=== PATIENT | female | born 1930 | race Caucasian/White ===

== ENCOUNTER → 2017-03-23 | Outpatient (CLI) | payer MEDICARE, OTHER ==
[~2017-03-23] MED LIST: ACET325 PO; ASCO500 PO; ASPI325 PO; ASPI81EC PO; AZIT250 PO; BACL10 PO; BISA10S PR; BISM300CH PO; Bactrim Ds Tab1 EACH PO; CEPH500 PO; CHOL10002 PO; CIPR500 PO; CLOP75 PO; CODGUAEL PO; CYAN1000 PO; CYCL10 PO; DONE10 PO; FURO40 PO; Ferrous Sulfat325 M2 PO; GLIM4 PO; HYDCHL25 PO; HYDR1TAB94 PO; LAVAP17G PO; LOPE2C PO; LORA.5 PO; LOSARTAN-HCTZ1 EACH PO; Loperamide2 MG PO; MELA3 PO; METF500C PO; METO25ER PO; MONT10T PO; Micro-K10 MEQ PO; Milk Of Ma400 MG/5 M PO; NAPR220 PO; Norco 5-325 Ta1 EACH PO; OSTERA TABLET1 EACH PO; PIOG30 PO; POTA10T PO; POTCHL10ER PO; SACC250C PO; SIMV40 PO; XARELTO15 MG PO; [UNRECOGNIZED DRUG - OTHER] PO
[2017-03-23 14:32] LABS: Source, Urine Clean Catch
[2017-03-23 14:42] LABS: Bilirubin, Urine Neg (Neg); Blood, Urine 1+ (Neg); Glucose Qualitative, Urine 2+ (Neg); Ketones, Urine Neg (Neg); Leukocyte Esterase, Urine 2+ (Neg); Nitrite, Urine Neg (Neg); Protein, Urine Neg (Neg); Specific Gravity, Urine 1.015 (1.003-1.022); Urobilinogen, Urine NORM (Normal)
[2017-03-23 15:22] LABS: Appearance, Urine Clear (Clear); Color, Urine Yellow (P-Yellow)
[2017-03-23 15:23] LABS: Bacteria Mod /hpf; Red Blood Cells, Urine Not Seen /hpf (0-2); Squamous Epithelial Cells Few /hpf (Few)
== END | disposition home or self-care (01) ==
LOC: LAB 14:30 → LAB SHORT 14:30
PROVIDERS: Family Medicine
DX: N39.0 Urinary tract infection, site not specified (principal)
CPT/HCPCS: 81001; 87077; 87086; 87186

== ENCOUNTER → 2017-04-11 | Outpatient (CLI) | payer MEDICARE, OTHER ==
[2017-04-11 18:37] LABS: Source, Urine Clean Catch
[2017-04-11 18:43] LABS: Bilirubin, Urine Neg (Neg); Blood, Urine 2+ (Neg); Glucose Qualitative, Urine Neg (Neg); Ketones, Urine Neg (Neg); Leukocyte Esterase, Urine 2+ (Neg); Nitrite, Urine Neg (Neg); Protein, Urine Neg (Neg); Urobilinogen, Urine NORM (Normal)
[2017-04-11 19:02] LABS: Appearance, Urine Hazy (Clear); Color, Urine Pale Yellow (P-Yellow)
[2017-04-11 19:04] LABS: Amorphous Heavy (0-Heavy); Bacteria Mod /hpf; Red Blood Cells, Urine 0-2 /hpf (0-2); Squamous Epithelial Cells Few /hpf (Few)
== END | disposition home or self-care (01) ==
LOC: LAB 11:30 → LAB SHORT 11:30
PROVIDERS: Family Medicine
DX: N39.0 Urinary tract infection, site not specified (principal)
CPT/HCPCS: 81001; 87077; 87086; 87186

== ENCOUNTER → 2017-05-31 | Outpatient (CLI) | payer MEDICARE, OTHER ==
[2017-05-31 19:13] LABS: Source, Urine Clean Catch
[2017-05-31 19:17] LABS: Appearance, Urine Cloudy (Clear); Bilirubin, Urine Neg (Neg); Blood, Urine 4+ (Neg); Color, Urine Yellow (P-Yellow); Glucose Qualitative, Urine 2+ (Neg); Ketones, Urine Neg (Neg); Leukocyte Esterase, Urine 3+ (Neg); Nitrite, Urine Neg (Neg); Protein, Urine 3+ (Neg); Urobilinogen, Urine NORM (Normal)
[2017-05-31 19:24] LABS: Bacteria Many /hpf; Squamous Epithelial Cells Rare /hpf (Few); White Blood Cells, Urine TNTC /hpf (0-5)
== END ==
LOC: LAB 17:00 → LAB SHORT 17:00
PROVIDERS: Family Medicine
DX: N39.0 Urinary tract infection, site not specified (principal)
CPT/HCPCS: 81001; 87077; 87086; 87186

== ENCOUNTER → 2017-08-12 | Outpatient (CLI) | payer MEDICARE, OTHER ==
[~2017-08-12] MED LIST changes: -ASCO500 PO; -ASPI325 PO; -Bactrim Ds Tab1 EACH PO; -CEPH500 PO; -FURO40 PO; -Ferrous Sulfat325 M2 PO; -LORA.5 PO; -SACC250C PO; -XARELTO15 MG PO
[2017-08-13 14:20] LABS: Source, Urine Clean Catch
[2017-08-13 14:27] LABS: Bilirubin, Urine Neg (Neg); Blood, Urine 1+ (Neg); Glucose Qualitative, Urine Neg (Neg); Ketones, Urine Neg (Neg); Leukocyte Esterase, Urine 2+ (Neg); Nitrite, Urine Neg (Neg); Protein, Urine 1+ (Neg); Urobilinogen, Urine NORM (Normal)
[2017-08-13 14:44] LABS: Appearance, Urine Hazy (Clear); Color, Urine Yellow (P-Yellow)
[2017-08-13 14:45] LABS: White Blood Cells, Urine 25-50 /hpf (0-5)
[2017-08-13 14:46] LABS: Bacteria Many /hpf; Squamous Epithelial Cells Few /hpf (Few)
== END ==
LOC: LAB 11:30 → LAB SHORT 11:30
PROVIDERS: Family Medicine
DX: N39.0 Urinary tract infection, site not specified (principal)
CPT/HCPCS: 81001; 87077; 87086; 87186

== ENCOUNTER → 2017-09-13 | Outpatient (CLI) | payer MEDICARE, OTHER ==
[2017-09-13 14:03] LABS: Source, Urine Clean Catch
[2017-09-13 14:38] LABS: Bilirubin, Urine Neg (Neg); Blood, Urine 3+ (Neg); Glucose Qualitative, Urine Neg (Neg); Ketones, Urine Neg (Neg); Leukocyte Esterase, Urine 3+ (Neg); Nitrite, Urine Neg (Neg); Protein, Urine 2+ (Neg); Urobilinogen, Urine NORM (Normal)
[2017-09-13 15:07] LABS: Appearance, Urine Clear (Clear); Color, Urine Yellow (P-Yellow)
[2017-09-13 15:10] LABS: White Blood Cells, Urine TNTC /hpf (0-5)
[2017-09-13 15:11] LABS: Bacteria Mod /hpf; Squamous Epithelial Cells Few /hpf (Few)
== END ==
LOC: LAB 08:45 → LAB SHORT 08:45
PROVIDERS: Family Medicine
DX: N39.0 Urinary tract infection, site not specified (principal)
CPT/HCPCS: 81001; 87077; 87086; 87186

== ENCOUNTER 2017-11-11 12:29 | Emergency (ER) | payer MEDICARE, OTHER ==
[~2017-11-11] VITALS: Ht 165.1 cm; Wt 63.5 kg
[~2017-11-11 12:29] MED LIST changes: +ASCO500 PO; +CEPH500 PO; +FURO40 PO; +Ferrous Sulfat325 M2 PO; +SACC250C PO; +XARELTO15 MG PO
[2017-11-11 13:01] LABS: BASOPHILS ABSOLUTE AUTO 0.02 K/mm3 (0.00-0.23); BASOPHILS PERCENT AUTO 0 % (0-2); EOSINOPHILS ABSOLUTE AUTO 0.06 K/mm3 (0.00-0.68); EOSINOPHILS PERCENT AUTO 1 % (0-6); IMMATURE GRAN ABSOLUTE AUTO 0.01 K/mm3 (0.00-0.10); IMMATURE GRAN PERCENT AUTO 0 % (0-1); LYMPHOCYTES ABSOLUTE AUTO 2.16 K/mm3 (0.84-5.20); LYMPHOCYTES PERCENT AUTO 35 % (21-46); MONOCYTES ABSOLUTE AUTO 0.51 K/mm3 (0.16-1.47); MONOCYTES PERCENT AUTO 8 % (4-13); Mean Corpuscular HGB 30.1 pg (26.0-34.0); Mean Corpuscular HGB Conc 31.4 g/dL (31.5-36.5); Mean Corpuscular Volume 96 fL (80-100); Mean Platelet Volume 10.2 fL (9.1-12.4); NEUTROPHILS ABSOLUTE AUTO 3.38 K/mm3 (1.96-9.15); NEUTROPHILS PERCENT AUTO 55 % (41-73); Platelet Count 193 K/mm3 (150-400); RDW Coefficient Variation 14.7 % (11.7-14.2); RDW Standard Deviation 51.8 fL (35.1-46.3); Red Blood Cell Count 3.65 M/mm3 (3.80-5.20); White Blood Cell Count 6.14 K/mm3 (4.00-11.30)
[2017-11-11 13:21] LABS: Bun/Creatinine Ratio 26.2 (12.0-20.0); Calcium, Blood 8.7 mg/dL (8.5-10.1); Creatinine, Blood 0.96 mg/dL (0.40-1.00)
[2017-11-11] MEDS ORDERED: LORA.5 PO (13:29)
[2017-11-11 13:35] LABS: Appearance, Urine Cloudy (Clear); Bilirubin, Urine Neg (Neg); Blood, Urine 5+ (Neg); Color, Urine Amber (P-Yellow); Glucose Qualitative, Urine Neg (Neg); Ketones, Urine 2+ (Neg); Leukocyte Esterase, Urine 3+ (Neg); Nitrite, Urine Neg (Neg); Protein, Urine 4+ (Neg); Specific Gravity, Urine 1.015 (1.003-1.022); Urobilinogen, Urine NORM (Normal)
[2017-11-11 13:59] LABS: Bacteria Mod /hpf; Red Blood Cells, Urine TNTC /hpf (0-2); Squamous Epithelial Cells Mod /hpf (Few)
[2017-11-11] MEDS ORDERED: CEPH500 PO (14:08)
== END 2017-11-11 17:10 | disposition home or self-care (01) ==
LOC: ER 12:29
PROVIDERS: Emergency Medicine
DX: N30.90 Cystitis, unspecified without hematuria (principal); G30.9 Alzheimer's disease, unspecified; F02.80 Dementia in other diseases classified elsewhere, unspecified severity, without behavioral disturbance, psychotic disturbance, mood disturbance, and anxiety; E11.9 Type 2 diabetes mellitus without complications; I10 Essential (primary) hypertension; Z88.7 Allergy status to serum and vaccine; Z79.899 Other long term (current) drug therapy; Z79.84 Long term (current) use of oral hypoglycemic drugs; Z79.01 Long term (current) use of anticoagulants; Z87.891 Personal history of nicotine dependence
CPT/HCPCS: 36415; 80048; 81001; 85025; 87077; 87086; 87186; 99284; P9612

== ENCOUNTER → 2018-03-20 | Outpatient (CLI) | payer MEDICARE, OTHER ==
[~2018-03-20] MED LIST changes: +ASPI325 PO; +Bactrim Ds Tab1 EACH PO; +LORA.5 PO
[2018-03-20 19:36] LABS: Appearance, Urine Cloudy (Clear); Bilirubin, Urine Neg (Neg); Blood, Urine 1+ (Neg); Color, Urine Yellow (P-Yellow); Glucose Qualitative, Urine Neg (Neg); Ketones, Urine Neg (Neg); Leukocyte Esterase, Urine 2+ (Neg); Nitrite, Urine Neg (Neg); Protein, Urine 1+ (Neg); Specific Gravity, Urine 1.015 (1.003-1.022); Urobilinogen, Urine NORM (Normal)
[2018-03-20 19:43] LABS: Red Blood Cells, Urine 0-2 /hpf (0-2)
[2018-03-20 19:44] LABS: Bacteria Many /hpf; Squamous Epithelial Cells Few /hpf (Few)
== END | disposition home or self-care (01) ==
LOC: LAB 19:17 → LAB SHORT 19:17
PROVIDERS: Family Medicine
DX: N39.0 Urinary tract infection, site not specified (principal)
CPT/HCPCS: 81001; 87077; 87086; 87186

== ENCOUNTER → 2018-05-14 | Outpatient (CLI) | payer MEDICARE, OTHER ==
[2018-05-14 19:43] LABS: Appearance, Urine Turbid (Clear); Bilirubin, Urine Neg (Neg); Blood, Urine 3+ (Neg); Color, Urine Yellow (P-Yellow); Glucose Qualitative, Urine Neg (Neg); Ketones, Urine Neg (Neg); Leukocyte Esterase, Urine 2+ (Neg); Nitrite, Urine Neg (Neg); Protein, Urine 2+ (Neg); Specific Gravity, Urine 1.015 (1.003-1.022); Urobilinogen, Urine NORM (Normal)
[2018-05-14 19:51] LABS: Red Blood Cells, Urine 0-2 /hpf (0-2); Squamous Epithelial Cells Few /hpf (Few); White Blood Cells, Urine 25-50 /hpf (0-5)
[2018-05-14 19:52] LABS: Amorphous Light (0-Heavy); Bacteria Many /hpf; Calcium Oxalate Crystals Few /hpf
== END | disposition home or self-care (01) ==
LOC: LAB 19:19 → LAB SHORT 19:19
PROVIDERS: Family Medicine
DX: N39.0 Urinary tract infection, site not specified (principal)
CPT/HCPCS: 81001; 87086

== ENCOUNTER → 2018-06-11 | Outpatient (CLI) | payer MEDICARE, OTHER ==
[2018-06-11 19:15] LABS: Source, Urine Clean Catch
[2018-06-11 19:39] LABS: Appearance, Urine Hazy (Clear); Bilirubin, Urine Neg (Neg); Blood, Urine Neg (Neg); Color, Urine Yellow (P-Yellow); Glucose Qualitative, Urine Neg (Neg); Ketones, Urine Neg (Neg); Leukocyte Esterase, Urine 3+ (Neg); Nitrite, Urine Pos (Neg); Protein, Urine Neg (Neg); Specific Gravity, Urine 1.015 (1.003-1.022); Urobilinogen, Urine NORM (Normal)
[2018-06-11 19:55] LABS: Bacteria Many /hpf; Red Blood Cells, Urine 0-2 /hpf (0-2); Squamous Epithelial Cells Mod /hpf (Few)
== END | disposition home or self-care (01) ==
LOC: LAB SHORT 19:13 → LAB 19:13
PROVIDERS: Family Medicine
DX: N39.0 Urinary tract infection, site not specified (principal)
CPT/HCPCS: 81001; 87077; 87086; 87186

== ENCOUNTER → 2018-07-09 | Outpatient (CLI) | payer MEDICARE, OTHER ==
[2018-07-09 19:11] LABS: Source, Urine Clean Catch
[2018-07-09 19:15] LABS: Bilirubin, Urine Neg (Neg); Blood, Urine 4+ (Neg); Glucose Qualitative, Urine 1+ (Neg); Ketones, Urine Neg (Neg); Leukocyte Esterase, Urine 3+ (Neg); Nitrite, Urine Neg (Neg); Protein, Urine 3+ (Neg); Urobilinogen, Urine NORM (Normal)
[2018-07-09 19:24] LABS: Appearance, Urine Hazy (Clear); Color, Urine Yellow (P-Yellow)
[2018-07-09 19:25] LABS: Bacteria Many /hpf; Calcium Oxalate Crystals Few /hpf; Squamous Epithelial Cells Few /hpf (Few); White Blood Cells, Urine TNTC /hpf (0-5)
== END | disposition home or self-care (01) ==
LOC: LAB 19:10 → LAB SHORT 19:10
PROVIDERS: Family Medicine
DX: N39.0 Urinary tract infection, site not specified (principal)
CPT/HCPCS: 81001; 87077; 87086; 87186

== ENCOUNTER → 2018-08-24 | Outpatient (CLI) | payer MEDICARE, OTHER ==
[2018-08-26 14:26] LABS: Source, Urine Clean Catch
[2018-08-26 14:38] LABS: Appearance, Urine Hazy (Clear); Bilirubin, Urine Neg (Neg); Blood, Urine Neg (Neg); Glucose Qualitative, Urine Neg (Neg); Ketones, Urine Neg (Neg); Leukocyte Esterase, Urine 2+ (Neg); Nitrite, Urine Neg (Neg); Protein, Urine 1+ (Neg); Urobilinogen, Urine NORM (Normal)
[2018-08-26 14:52] LABS: Color, Urine Yellow (P-Yellow); Red Blood Cells, Urine Not Seen /hpf (0-2); Squamous Epithelial Cells Many /hpf (Few)
[2018-08-26 14:53] LABS: Bacteria Many /hpf
== END | disposition home or self-care (01) ==
LOC: LAB SHORT 15:00 → LAB 15:00
PROVIDERS: Family Medicine
DX: N39.0 Urinary tract infection, site not specified (principal)
CPT/HCPCS: 81001; 87086

== ENCOUNTER → 2018-10-30 | Outpatient (CLI) | payer MEDICARE, OTHER ==
[2018-10-31 19:27] LABS: Source, Urine Clean Catch
[2018-10-31 19:45] LABS: Bilirubin, Urine Neg (Neg); Blood, Urine 3+ (Neg); Glucose Qualitative, Urine 3+ (Neg); Ketones, Urine Neg (Neg); Leukocyte Esterase, Urine 3+ (Neg); Nitrite, Urine Neg (Neg); Protein, Urine 2+ (Neg); Specific Gravity, Urine 1.015 (1.003-1.022); Urobilinogen, Urine NORM (Normal); pH, Urine 6.5 (5.0-8.0)
[2018-10-31 19:57] LABS: Appearance, Urine Cloudy (Clear); Color, Urine Yellow (P-Yellow)
[2018-10-31 20:00] LABS: Bacteria Many /hpf; Squamous Epithelial Cells Few /hpf (Few)
== END | disposition home or self-care (01) ==
LOC: LAB 19:25 → LAB SHORT 19:25
PROVIDERS: Family Medicine
DX: N39.0 Urinary tract infection, site not specified (principal)
CPT/HCPCS: 81001; 87086

== ENCOUNTER → 2018-11-20 | Outpatient (CLI) | payer MEDICARE, OTHER ==
[2018-11-21 19:45] LABS: Source, Urine Clean Catch
[2018-11-21 20:20] LABS: Bilirubin, Urine Neg (Neg); Blood, Urine 4+ (Neg); Glucose Qualitative, Urine 3+ (Neg); Ketones, Urine 1+ (Neg); Leukocyte Esterase, Urine 3+ (Neg); Nitrite, Urine Neg (Neg); Protein, Urine 2+ (Neg); Specific Gravity, Urine 1.025 (1.003-1.022); Urobilinogen, Urine NORM (Normal)
[2018-11-21 20:33] LABS: Appearance, Urine Hazy (Clear); Color, Urine Yellow (P-Yellow)
[2018-11-21 20:36] LABS: White Blood Cells, Urine TNTC /hpf (0-5)
[2018-11-21 20:37] LABS: Bacteria Many /hpf; Squamous Epithelial Cells Few /hpf (Few)
== END | disposition home or self-care (01) ==
LOC: LAB SHORT 19:44 → LAB 19:44
PROVIDERS: Family Medicine
DX: N39.0 Urinary tract infection, site not specified (principal)
CPT/HCPCS: 81001; 87086

== ENCOUNTER → 2018-12-16 | Outpatient (CLI) | payer MEDICARE, OTHER ==
[2018-12-17 14:40] LABS: Source, Urine Clean Catch
[2018-12-17 17:02] LABS: Bilirubin, Urine Neg (Neg); Blood, Urine 4+ (Neg); Glucose Qualitative, Urine Neg (Neg); Ketones, Urine 2+ (Neg); Leukocyte Esterase, Urine Neg (Neg); Nitrite, Urine Neg (Neg); Protein, Urine 3+ (Neg); Specific Gravity, Urine 1.015 (1.003-1.022); Urobilinogen, Urine NORM (Normal); pH, Urine 6.5 (5.0-8.0)
[2018-12-17 17:48] LABS: Appearance, Urine Cloudy (Clear); Color, Urine Yellow (P-Yellow)
[2018-12-17 17:49] LABS: White Blood Cells, Urine 25-50 /hpf (0-5)
[2018-12-17 17:50] LABS: Bacteria Many /hpf; Squamous Epithelial Cells Rare /hpf (Few)
== END | disposition home or self-care (01) ==
LOC: LAB 18:00 → LAB SHORT 18:00
PROVIDERS: Family Medicine
DX: N39.0 Urinary tract infection, site not specified (principal)
CPT/HCPCS: 81001; 87086

== ENCOUNTER → 2019-04-11 | Outpatient (CLI) | payer MEDICARE, OTHER ==
[2019-04-11 17:39] LABS: Source, Urine Clean Catch
[2019-04-11 19:41] LABS: Appearance, Urine Hazy (Clear); Bilirubin, Urine Neg (Neg); Blood, Urine 4+ (Neg); Color, Urine Yellow (P-Yellow); Glucose Qualitative, Urine 2+ (Neg); Ketones, Urine 1+ (Neg); Leukocyte Esterase, Urine 1+ (Neg); Nitrite, Urine Pos (Neg); Protein, Urine 2+ (Neg); Specific Gravity, Urine 1.015 (1.003-1.022); Urobilinogen, Urine 1+ (Normal)
[2019-04-11 20:03] LABS: Red Blood Cells, Urine 0-2 /hpf (0-2); Squamous Epithelial Cells Few /hpf (Few); White Blood Cells, Urine TNTC /hpf (0-5)
[2019-04-11 20:04] LABS: Bacteria Many /hpf
== END | disposition home or self-care (01) ==
LOC: LAB 17:33 → LAB SHORT 17:33
PROVIDERS: Family Medicine
DX: N39.0 Urinary tract infection, site not specified (principal)
CPT/HCPCS: 81001; 87077; 87086; 87186

== ENCOUNTER → 2019-05-12 | Outpatient (CLI) | payer MEDICARE, OTHER ==
[2019-05-12 19:07] LABS: Source, Urine Clean Catch
[2019-05-12 19:57] LABS: Appearance, Urine Turbid (Clear); Bilirubin, Urine Neg (Neg); Blood, Urine 3+ (Neg); Color, Urine Yellow (P-Yellow); Glucose Qualitative, Urine Neg (Neg); Ketones, Urine Neg (Neg); Leukocyte Esterase, Urine 3+ (Neg); Nitrite, Urine Neg (Neg); Protein, Urine 4+ (Neg); Specific Gravity, Urine 1.015 (1.003-1.022); Urobilinogen, Urine NORM (Normal)
[2019-05-12 20:04] LABS: Bacteria Many /hpf; Red Blood Cells, Urine 0-2 /hpf (0-2); Squamous Epithelial Cells Not Seen /hpf (Few); Triple Phosphate Crystals Mod /hpf; White Blood Cells, Urine TNTC /hpf (0-5)
== END ==
LOC: LAB SHORT 19:04 → LAB 19:04
PROVIDERS: Family Medicine
DX: N39.0 Urinary tract infection, site not specified (principal)
CPT/HCPCS: 81001; 87077; 87086; 87186

== ENCOUNTER → 2019-06-27 | Outpatient (CLI) | payer MEDICARE, OTHER ==
[2019-06-27 18:21] LABS: Source, Urine Catheter
[2019-06-27 19:30] LABS: Bilirubin, Urine Neg (Neg); Blood, Urine 4+ (Neg); Glucose Qualitative, Urine 2+ (Neg); Ketones, Urine Neg (Neg); Leukocyte Esterase, Urine 3+ (Neg); Nitrite, Urine Neg (Neg); Protein, Urine 2+ (Neg); Specific Gravity, Urine 1.015 (1.003-1.022); Urobilinogen, Urine NORM (Normal)
[2019-06-27 19:41] LABS: Appearance, Urine Clear (Clear); Color, Urine Yellow (P-Yellow)
[2019-06-27 19:46] LABS: Bacteria Many /hpf; Squamous Epithelial Cells Few /hpf (Few)
== END | disposition home or self-care (01) ==
LOC: LAB 18:17 → LAB SHORT 18:17
PROVIDERS: Family Medicine
DX: N39.0 Urinary tract infection, site not specified (principal)
CPT/HCPCS: 81001; 87077; 87086; 87186

== ENCOUNTER → 2019-07-21 | Outpatient (CLI) | payer MEDICARE, OTHER ==
[2019-07-22 16:07] LABS: Bilirubin, Urine Neg (Neg); Blood, Urine 4+ (Neg); Glucose Qualitative, Urine 4+ (Neg); Ketones, Urine 2+ (Neg); Leukocyte Esterase, Urine 3+ (Neg); Nitrite, Urine Neg (Neg); Protein, Urine 2+ (Neg); Urobilinogen, Urine NORM (Normal); pH, Urine 6.5 (5.0-8.0)
[2019-07-22 16:32] LABS: Appearance, Urine Cloudy (Clear); Color, Urine Yellow (P-Yellow)
[2019-07-22 16:34] LABS: Bacteria Many /hpf; Red Blood Cells, Urine TNTC /hpf (0-2); Squamous Epithelial Cells Few /hpf (Few); White Blood Cells, Urine TNTC /hpf (0-5)
[2019-07-28 12:45] LABS: Source, Urine Clean Catch
== END | disposition home or self-care (01) ==
LOC: LAB SHORT 19:00 → LAB 19:00
PROVIDERS: Family Medicine
DX: N39.0 Urinary tract infection, site not specified (principal)
CPT/HCPCS: 81001; 87086

== ENCOUNTER → 2019-08-07 | Outpatient (CLI) | payer MEDICARE, OTHER ==
[2019-08-07 13:18] LABS: Bilirubin, Urine Neg (Neg); Blood, Urine 4+ (Neg); Glucose Qualitative, Urine 2+ (Neg); Ketones, Urine 2+ (Neg); Leukocyte Esterase, Urine 3+ (Neg); Nitrite, Urine Pos (Neg); Protein, Urine 3+ (Neg); Urobilinogen, Urine NORM (Normal)
[2019-08-07 13:29] LABS: Appearance, Urine Cloudy (Clear); Color, Urine Yellow (P-Yellow)
[2019-08-07 13:30] LABS: Bacteria Many /hpf; White Blood Cells, Urine TNTC /hpf (0-5)
[2019-08-07 13:31] LABS: Red Blood Cells, Urine 25-50 /hpf (0-2); Squamous Epithelial Cells Few /hpf (Few)
== END | disposition home or self-care (01) ==
LOC: LAB 10:45 → LAB SHORT 10:45
PROVIDERS: Family Medicine
DX: N39.0 Urinary tract infection, site not specified (principal)
CPT/HCPCS: 81001; 87077; 87086; 87186

== ENCOUNTER → 2019-08-27 | Outpatient (CLI) | payer MEDICARE, OTHER ==
[2019-08-27 12:31] LABS: Source, Urine Clean Catch
[2019-08-27 14:24] LABS: Appearance, Urine Turbid (Clear); Color, Urine Yellow (P-Yellow); Leukocyte Esterase, Urine Neg (Neg); Nitrite, Urine Pos (Neg); Protein, Urine 2+ (Neg)
[2019-08-27 14:25] LABS: Bilirubin, Urine Neg (Neg); Blood, Urine 3+ (Neg); Glucose Qualitative, Urine 2+ (Neg); Ketones, Urine 1+ (Neg); Urobilinogen, Urine NORM (Normal)
[2019-08-27 14:39] LABS: White Blood Cells, Urine TNTC /hpf (0-5)
[2019-08-27 14:40] LABS: Amorphous Heavy (0-Heavy); Bacteria Mod /hpf; Squamous Epithelial Cells Few /hpf (Few)
== END | disposition home or self-care (01) ==
LOC: LAB SHORT 12:30 → LAB 12:30
PROVIDERS: Family Medicine
DX: N39.0 Urinary tract infection, site not specified (principal)
CPT/HCPCS: 81001; 87077; 87086; 87186

== ENCOUNTER → 2019-11-24 | Outpatient (CLI) | payer MEDICARE, OTHER ==
[2019-11-25 12:12] LABS: Source, Urine Clean Catch
[2019-11-25 14:07] LABS: Appearance, Urine Hazy (Clear); Bilirubin, Urine Neg (Neg); Blood, Urine 1+ (Neg); Color, Urine Yellow (P-Yellow); Glucose Qualitative, Urine 3+ (Neg); Ketones, Urine Neg (Neg); Leukocyte Esterase, Urine 3+ (Neg); Nitrite, Urine Neg (Neg); Protein, Urine 1+ (Neg); Urobilinogen, Urine NORM (Normal)
[2019-11-25 15:38] LABS: Bacteria Many /hpf; Squamous Epithelial Cells Few /hpf (Few); White Blood Cells, Urine 25-50 /hpf (0-5)
== END ==
LOC: LAB SHORT 12:09 → LAB 12:09 → LAB SHORT 11-25 12:09
PROVIDERS: Family Medicine
DX: N39.0 Urinary tract infection, site not specified (principal)
CPT/HCPCS: 81001; 87077; 87086; 87186

== ENCOUNTER 2020-01-04 19:08 | Inpatient (IN) | payer MEDICARE, OTHER ==
[~2020-01-04] VITALS: Ht 175.3 cm; Wt 59.3 kg
[~2020-01-04 19:08] MED LIST changes: -ASPI325 PO; -BACL10 PO; -Ferrous Sulfat325 M2 PO; -METO25ER PO
[2020-01-04 19:36] LABS: Source, Urine Catheter
[2020-01-04] MEDS ORDERED: CEPH500 (19:37)
[2020-01-04 19:42] LABS: Appearance, Urine Turbid (Clear); Bilirubin, Urine Neg (Neg); Blood, Urine 5+ (Neg); Color, Urine Yellow (P-Yellow); Glucose Qualitative, Urine 3+ (Neg); Ketones, Urine 2+ (Neg); Leukocyte Esterase, Urine 3+ (Neg); Nitrite, Urine Neg (Neg); Protein, Urine 3+ (Neg); Urobilinogen, Urine 2+ (Normal)
[2020-01-04 19:55] LABS: White Blood Cells, Urine TNTC /hpf (0-5)
[2020-01-04 19:56] LABS: Bacteria Many /hpf; Squamous Epithelial Cells Rare /hpf (Few)
[2020-01-04] MEDS ORDERED: ASPI325 PO (20:02)
[2020-01-04] MEDS ORDERED: BACL10 PO (20:02)
[2020-01-04] MEDS ORDERED: Artificial Tear15 ML BOTHEYES (20:03)
[2020-01-04] MEDS ORDERED: FERSU300 PO (20:06)
[2020-01-04] MEDS ORDERED: Prozac20 MG PO (20:06)
[2020-01-04] MEDS ORDERED: METF500 PO (20:07)
[2020-01-04] MEDS ORDERED: Loratadine10 MG PO (20:07)
[2020-01-04] MEDS ORDERED: MONT10T PO (20:08)
[2020-01-04] MEDS ORDERED: METO25 PO (20:08)
[2020-01-04] MEDS ORDERED: LOSARTAN-HCTZ1 EACH PO (20:09)
[2020-01-04] MEDS ORDERED: ACET325 PO (20:10)
[2020-01-04] MEDS ORDERED: ALMACONE-2 LIQ355 ML PO (20:13)
[2020-01-04] MEDS ORDERED: MIRALAX17 GM PO (20:13)
[2020-01-04] MEDS ORDERED: BISA10S PR (20:15)
[2020-01-04] MEDS ORDERED: DICLOFENAC SOD100 G1 TOP (20:16)
[2020-01-04] MEDS ORDERED: IBUP200 PO (20:55)
[2020-01-04] MEDS ORDERED: Norco 5-325 Ta1 EACH PO (20:55)
[2020-01-04] MEDS ORDERED: LOPERAMIDE2 M2 PO (20:57)
[2020-01-04] MEDS ORDERED: DULCOLAX400 MG/5 M PO (20:58)
[2020-01-04] MEDS ORDERED: Q-Tussin100 MG/5 M PO (20:59)
[2020-01-04 21:01] LABS: BASOPHILS ABSOLUTE AUTO 0.02 K/mm3 (0.00-0.23); BASOPHILS PERCENT AUTO 0 % (0-2); EOSINOPHILS PERCENT AUTO 0 % (0-6); Hematocrit 51.1 % (33.0-51.0); Hemoglobin 15.6 g/dL (11.5-16.0); IMMATURE GRAN ABSOLUTE AUTO 0.05 K/mm3 (0.00-0.10); IMMATURE GRAN PERCENT AUTO 0 % (0-1); LYMPHOCYTES ABSOLUTE AUTO 1.07 K/mm3 (0.84-5.20); LYMPHOCYTES PERCENT AUTO 9 % (21-46); MONOCYTES ABSOLUTE AUTO 0.83 K/mm3 (0.16-1.47); MONOCYTES PERCENT AUTO 7 % (4-13); Mean Corpuscular HGB 29.2 pg (26.0-34.0); Mean Corpuscular HGB Conc 30.5 g/dL (31.5-36.5); Mean Corpuscular Volume 96 fL (80-100); Mean Platelet Volume 10.4 fL (9.1-12.4); NEUTROPHILS ABSOLUTE AUTO 10.66 K/mm3 (1.96-9.15); NEUTROPHILS PERCENT AUTO 84 % (41-73); Platelet Count 300 K/mm3 (150-400); RDW Coefficient Variation 13.6 % (11.7-14.2); RDW Standard Deviation 48.3 fL (35.1-46.3); Red Blood Cell Count 5.34 M/mm3 (3.80-5.20); White Blood Cell Count 12.63 K/mm3 (4.00-11.30)
[2020-01-04 21:35] LABS: Albumin, Blood 3.3 g/dL (3.4-5.0); Albumin/Globulin Ratio 0.7 (0.8-1.8); Bilirubin, Total 0.5 mg/dL (0.1-1.0); Bun/Creatinine Ratio 55.7 (12.0-20.0); Calcium, Blood 9.2 mg/dL (8.5-10.1); Creatinine, Blood 2.62 mg/dL (0.40-1.00); Globulin, Blood 4.8 g/dL (2.2-4.0); Potassium, Blood 3.6 mmol/L (3.5-5.5); Total Protein, Blood 8.1 g/dL (6.4-8.2); Troponin I 0.02 ng/mL (0.000-0.040)
[2020-01-05] MEDS ORDERED: Norco 5-325 Ta1 EACH PO (00:02)
[2020-01-05 02:28] LABS: BASOPHILS ABSOLUTE AUTO 0.03 K/mm3 (0.00-0.23); BASOPHILS PERCENT AUTO 0 % (0-2); EOSINOPHILS PERCENT AUTO 0 % (0-6); Hematocrit 44.7 % (33.0-51.0); Hemoglobin 13.5 g/dL (11.5-16.0); IMMATURE GRAN ABSOLUTE AUTO 0.04 K/mm3 (0.00-0.10); IMMATURE GRAN PERCENT AUTO 0 % (0-1); LYMPHOCYTES PERCENT AUTO 10 % (21-46); MONOCYTES PERCENT AUTO 7 % (4-13); Mean Corpuscular HGB 29.5 pg (26.0-34.0); Mean Corpuscular HGB Conc 30.2 g/dL (31.5-36.5); Mean Corpuscular Volume 98 fL (80-100); Mean Platelet Volume 10.5 fL (9.1-12.4); NEUTROPHILS ABSOLUTE AUTO 10.34 K/mm3 (1.96-9.15); NEUTROPHILS PERCENT AUTO 82 % (41-73); Platelet Count 227 K/mm3 (150-400); RDW Coefficient Variation 13.5 % (11.7-14.2); RDW Standard Deviation 48.7 fL (35.1-46.3); Red Blood Cell Count 4.57 M/mm3 (3.80-5.20); White Blood Cell Count 12.61 K/mm3 (4.00-11.30)
[2020-01-05 02:49] LABS: Albumin, Blood 2.8 g/dL (3.4-5.0); Albumin/Globulin Ratio 0.7 (0.8-1.8); Bilirubin, Total 0.4 mg/dL (0.1-1.0); Bun/Creatinine Ratio 62.3 (12.0-20.0); Calcium, Blood 8.1 mg/dL (8.5-10.1); Creatinine, Blood 2.12 mg/dL (0.40-1.00); Globulin, Blood 3.8 g/dL (2.2-4.0); Potassium, Blood 3.8 mmol/L (3.5-5.5); Total Protein, Blood 6.6 g/dL (6.4-8.2)
--- NOTE | 2020-01-05 05:07 | NUR ---
shift summary pt rested through shift after being admitted very confused - advanced dementia/slow to respond tele nsr c 7sec vtach per tele room air >90% incontinent bm's - attends changed as needed x1 sinha - 700ml - cloudy/odorous urine no c/o pain vss cbg 444 call light within reach, bed in lowest position, bed alarm on. will continue to monitor.
--- NOTE | 2020-01-05 07:45 | NUR ---
ASSUMING CARE OF PT, RECEIVED REPORT FROM PHYLLIS SHIN. PT MEDICATED PER ORDERS FOR ELEVATED BLOOD GLUCOSE LEVELS, REPOSITIONED IN BED. MILK SAMPLER AT BEDSIDE TO ASSIST PT WITH BREAKFAST.
--- NOTE | 2020-01-05 11:40 | NUR ---
RECEIVED PHONE CALL FROM PHYLLIS LOREDO WHO WORKS AT [employer]. FACUNDO STATES PT HAS BEEN TAKING KEFLEX FOR UTI X4 DAYS, HAS BECOME LETHARGIC OVER THE PAST COUPLE DAYS ALONG WITH HIGH BLOOD GLUCOSE LEVELS. FACUNDO STATES PT NORMALLY WALKS INDEPENDENTLY, DOES NOT TALK MUCH MORE THAN TYPICAL PHRASES SUCH "NO" OR "NOT NOW" BUT DOES SHAKE/NOD HER HEAD TO ANSWER QUESTIONS. FACUNDO STATES PT CAN SWALLOW PILLS WHOLE AND IS SOMETIMES RESISTANT TO ADL'S. MULTIPLE ATTEMPTS MADE TO GIVE PT HER MORNING MEDICATION. PT CONTINUES TO REFUSE.
--- NOTE | 2020-01-05 11:50 | NUR ---
Spiritual care visit conducted. Patient is minimally responsive. Patient barely lifts her head when I call her name and does not open her eyes. I ask several questions and no response until I ask if I could provide prayer for her. At that time she nods her head a little bit. I begin to pray and I open my eyes to see if there is any change and she is starring at my mouth. As I finish prayer she goes back to closed eyes and no response. I let her rest. I will continue to remain available to patient and family.
--- NOTE | 2020-01-05 12:48 | NUR ---
RECEIEVED REPORT FROM JOSE VAZQUEZ RN @ 0073. PATIENT WILL BE TRANSFERED TO ROOM 344.
--- NOTE | 2020-01-05 13:09 | NUR ---
PATIENT ARRIVED TO ROOM 344 AT 1305. PATIENT IS SITUATED IN ROOM.
--- NOTE | 2020-01-05 15:07 | NUR ---
Clinical Visit: Pt resting in bed quietly. She appears to be asleep; pt allowed to be restful at this time. Call placed to pt's health care customer relations representative, Nahed. Message left for her to return call. Call placed to [facility]. Spoke to lead nurse, Montse. Montse states that this pt is usually ambulatory, transfers with assistance, has a good appetite. Montse reports that prior to this admission, pt has been doing very well at the facility. Montse has spoken to the pt's health care customer relations representative about end of life matters in the past: she does not believe pt to be appropriate for hospice at this time, however, when the pt begins to become sicker more often or loses some of her remaining function, the decision maker will accept hospice services. Spoke with bedside nurse, Leida. No other concerns.
--- NOTE | 2020-01-05 15:36 | NUR ---
PATIENT HAS BEEN QUIETLY RESTING/ASLEEP SINCE TRANSFERING TO ROOM 346. TEJEDA CATH IS DRAINING TO GRAVITY. BP IS EVEVATED IN THE 150's SYSTOLLICALLY BUT OTHERWISE VITALS ARE STABLE. PATIENT RESPONDS BEST TO CARE/ADL'S WHEN APPROACHED CALMLY AND WHEN TALKED THROUGH THE ROUTINE. FOAM DRESSING TO HER [employer] CD[employer]. PATIENT CONTINUES TO REST IN ROOM AT THIS TIME. CONTINUES ON IV ABX WITHOUT S/SX OF ADVERSE REACTIONS NOTED OR REPORTED. WILL CONTINUE TO MONITOR AND PROVIDE CARE NEEDED.
--- NOTE | 2020-01-06 04:55 | NUR ---
SHIFT SUMMARY OPENS EYES TO VERBAL STIMULI. MOSTLY NONVERBAL-OCCASIONALLY WILL STATE 1 WORD SUCH "NO" OR "OW". NODS HEAD YES OR NO TO QUESTIONS. CAN FOLLOW SIMPLE DIRECTIONS- NURSERY LABORER HANDS, WIGGLE TOES, STICK OUT TONGUE. VSS. SLEPT WELL T/O NIGHT. WAS ABLE TO TALK PT INTO TAKING MOST MEDS c APPLESAUCE, SHE DID REFUSE A COUPLE MEDS. CBG @HS WAS 130. NIKHIL IS PATENT & DRAINING. PT HAD 2 SOFT BM THIS SHIFT. PT NEEDS CONSTANT VERBALIZATION OF TASKS/CARE THAT IS BEING PERFORMED, SHE IS FEARFUL & TRIED TO HIT/BITE WHEN FORGETS WHAT/WHY CARE IS BEING DONE, IS EASILY REASSURED. PT HAS YELLOW/WHITE LESIONS ON TONGUE, ATTEMPTED TO PERFORM ORAL CARE-PT REFUSED. CALL LIGHT & BED ALARM IN PLACE FOR SAFETY. TM.
[2020-01-06 06:48] LABS: BASOPHILS ABSOLUTE AUTO 0.02 K/mm3 (0.00-0.23); BASOPHILS PERCENT AUTO 0 % (0-2); EOSINOPHILS PERCENT AUTO 0 % (0-6); Hematocrit 43.8 % (33.0-51.0); Hemoglobin 13.7 g/dL (11.5-16.0); IMMATURE GRAN ABSOLUTE AUTO 0.04 K/mm3 (0.00-0.10); IMMATURE GRAN PERCENT AUTO 0 % (0-1); LYMPHOCYTES ABSOLUTE AUTO 1.81 K/mm3 (0.84-5.20); LYMPHOCYTES PERCENT AUTO 14 % (21-46); MONOCYTES PERCENT AUTO 5 % (4-13); Mean Corpuscular HGB 29.9 pg (26.0-34.0); Mean Corpuscular HGB Conc 31.3 g/dL (31.5-36.5); Mean Corpuscular Volume 96 fL (80-100); Mean Platelet Volume 10.5 fL (9.1-12.4); NEUTROPHILS ABSOLUTE AUTO 10.47 K/mm3 (1.96-9.15); NEUTROPHILS PERCENT AUTO 80 % (41-73); Platelet Count 187 K/mm3 (150-400); RDW Coefficient Variation 13.7 % (11.7-14.2); RDW Standard Deviation 47.9 fL (35.1-46.3); Red Blood Cell Count 4.58 M/mm3 (3.80-5.20); White Blood Cell Count 13.04 K/mm3 (4.00-11.30)
[2020-01-06 07:38] LABS: Albumin, Blood 2.8 g/dL (3.4-5.0); Albumin/Globulin Ratio 0.7 (0.8-1.8); Bilirubin, Total 0.5 mg/dL (0.1-1.0); Bun/Creatinine Ratio 77.1 (12.0-20.0); Calcium, Blood 8.6 mg/dL (8.5-10.1); Creatinine, Blood 1.05 mg/dL (0.40-1.00); Potassium, Blood 2.6 mmol/L (3.5-5.5); Total Protein, Blood 6.8 g/dL (6.4-8.2)
--- NOTE | 2020-01-06 10:50 | NUR ---
PT REFUSED ALL MEDICATIONS THIS MORNING. SHE REFUSED TO EAT BREAKFAST. IV FLUIDS RUNNING PER ORDER. SHE REMAINS CONFUSED AND NEEDS CONSTANT REMINDERS AND REINFORCEMENT DURING CARES. PT HAD TWO BMS OVER NIGHT.
--- NOTE | 2020-01-06 18:20 | NUR ---
PT HAD CRITICAL NA+ LEVEL. MEDS ADJUSTED . PT IS MOSTLY NON VERBAL WITH THE OCCASIONAL NOD OR YES/NO . POWERGLIDE PLACED THIS SHIFT. PT REFUSED ORAL MEDICATIONS. IV MEDS ADMINISTERED. DRESSINGS CHANGED THIS SHIFT. NO ACUTE CHANGES.
--- NOTE | 2020-01-07 05:31 | NUR ---
SHIFT SUMMARY NO ACUTE CHANGES THIS SHIFT. AOX1-SELF ONLY. PT MORE VERBAL THIS AM THEN PREVIOUS NIGHT, STATES "HELLO" & "VERY GOOD JOB" BEFORE & AFTER BEING CHANGED. MOSTLY NONVERBAL c NODDING YES/NO TO QUESTIONS. VSS. TEJEDA PATENT & DRAINING. PT REFUSED SOME MEDS, OTHERWISE ABLE TO TAKE MOST PO MEDS CRUSHED IN APPLESAUCE. HAD 1 LRG SOFT BM THIS SHIFT. CALL LIGHT IN REACH & BED ALARM IN PLACE.
[2020-01-07 06:07] LABS: BASOPHILS ABSOLUTE AUTO 0.02 K/mm3 (0.00-0.23); BASOPHILS PERCENT AUTO 0 % (0-2); EOSINOPHILS ABSOLUTE AUTO 0.04 K/mm3 (0.00-0.68); EOSINOPHILS PERCENT AUTO 0 % (0-6); Hematocrit 42.8 % (33.0-51.0); Hemoglobin 12.9 g/dL (11.5-16.0); IMMATURE GRAN ABSOLUTE AUTO 0.07 K/mm3 (0.00-0.10); IMMATURE GRAN PERCENT AUTO 1 % (0-1); LYMPHOCYTES PERCENT AUTO 16 % (21-46); MONOCYTES ABSOLUTE AUTO 0.71 K/mm3 (0.16-1.47); MONOCYTES PERCENT AUTO 5 % (4-13); Mean Corpuscular HGB 29.5 pg (26.0-34.0); Mean Corpuscular HGB Conc 30.1 g/dL (31.5-36.5); Mean Corpuscular Volume 98 fL (80-100); Mean Platelet Volume 10.7 fL (9.1-12.4); NEUTROPHILS ABSOLUTE AUTO 10.73 K/mm3 (1.96-9.15); NEUTROPHILS PERCENT AUTO 78 % (41-73); Platelet Count 165 K/mm3 (150-400); RDW Coefficient Variation 13.6 % (11.7-14.2); RDW Standard Deviation 49.9 fL (35.1-46.3); Red Blood Cell Count 4.37 M/mm3 (3.80-5.20); White Blood Cell Count 13.77 K/mm3 (4.00-11.30)
[2020-01-07 06:29] LABS: Blood Urea Nitrogen 51 mg/dL (8-24); Bun/Creatinine Ratio 59.3 (12.0-20.0); CO2, Blood 26 mmol/L (21-32); Calcium, Blood 8.3 mg/dL (8.5-10.1); Chloride, Blood 131 mmol/L (98-108); Creatinine, Blood 0.86 mg/dL (0.40-1.00); Glomerular Filtration Rate >60 (60-); Glucose, Blood 136 mg/dL (70-99); Potassium, Blood 2.7 mmol/L (3.5-5.5)
[2020-01-07 06:33] LABS: Anion Gap 6 mmol/L (6-16); Sodium, Blood 163 mmol/L (136-145)
--- NOTE | 2020-01-07 18:07 | NUR ---
PATIENT ALERT AND ORIENTED X1. BECOMING CONVERSATIONAL, SPEAKING IN FULL SENTENSES AND ASKING QUESTIONS. FLUIDS RAN ORDERED AND PT COMPLIANT WITH CARE. LOVENOX AND EYE DROPS REFUSED AT BEGINNING OF SHIFT. NO COMPLAINTS OF PAIN, SOB OR N/V. STAFF WILL CONT. TO MONITOR.
--- NOTE | 2020-01-08 04:14 | NUR ---
SHIFT SUMMARY ASSUMED CARE OF PT AT 100. PT IS A/O X2. PT TRYS TO REFUSE MEDICATIONS BUT CAN BE COAXED IN TAKING THEM IF THEY ARE CRUSHED IN APPLESAUCE. PT DOESNT LIKE TO HAVE HER BREIF CHANGED AND WILL SCREAM AND PLACE HER HANDS ON HER PERIAREA. PT HAD VERY LARGE LOOSE BM THIS SHIFT. PT HAS CATHETER DRAINING CLEAR YELLOW URINE. PT TALKED TO HERSELF ON AT TIMES DURING THE NIGHT IN BETWEEN SLEEPING. NO ACUTE EVENTS DURING THE NIGHT. PT SLEPT PARTS OF THE NIGHT. CALL LIGHT IN REACH, BED IN LOWEST POSTION, BED ALARM ON.
[2020-01-08 05:33] LABS: Anion Gap 7 mmol/L (6-16); Blood Urea Nitrogen 27 mg/dL (8-24); Bun/Creatinine Ratio 36.2 (12.0-20.0); CO2, Blood 25 mmol/L (21-32); Calcium, Blood 8.1 mg/dL (8.5-10.1); Chloride, Blood 122 mmol/L (98-108); Creatinine, Blood 0.75 mg/dL (0.40-1.00); Free Thyroxine 1.02 ng/dL (0.70-1.60); Glomerular Filtration Rate >60 (60-); Glucose, Blood 302 mg/dL (70-99); Magnesium, Blood 2.2 mg/dL (1.6-2.4); Sodium, Blood 154 mmol/L (136-145); Thyroid Stimulating Hormone 0.623 uIU/mL (0.360-4.800)
[2020-01-08 05:34] LABS: BASOPHILS ABSOLUTE AUTO 0.01 K/mm3 (0.00-0.23); BASOPHILS PERCENT AUTO 0 % (0-2); EOSINOPHILS ABSOLUTE AUTO 0.13 K/mm3 (0.00-0.68); EOSINOPHILS PERCENT AUTO 1 % (0-6); Hematocrit 35.8 % (33.0-51.0); Hemoglobin 10.8 g/dL (11.5-16.0); IMMATURE GRAN ABSOLUTE AUTO 0.04 K/mm3 (0.00-0.10); IMMATURE GRAN PERCENT AUTO 0 % (0-1); LYMPHOCYTES ABSOLUTE AUTO 1.93 K/mm3 (0.84-5.20); LYMPHOCYTES PERCENT AUTO 21 % (21-46); MONOCYTES ABSOLUTE AUTO 0.44 K/mm3 (0.16-1.47); MONOCYTES PERCENT AUTO 5 % (4-13); Mean Corpuscular HGB 29.2 pg (26.0-34.0); Mean Corpuscular HGB Conc 30.2 g/dL (31.5-36.5); Mean Corpuscular Volume 97 fL (80-100); NEUTROPHILS ABSOLUTE AUTO 6.74 K/mm3 (1.96-9.15); NEUTROPHILS PERCENT AUTO 73 % (41-73); Platelet Count 128 K/mm3 (150-400); RDW Coefficient Variation 13.5 % (11.7-14.2); RDW Standard Deviation 48.4 fL (35.1-46.3); White Blood Cell Count 9.29 K/mm3 (4.00-11.30)
--- NOTE | 2020-01-08 18:25 | NUR ---
SHIFT SUMMARY- PT IS ALERT AND CONFUSED. SHE IS EATING AND DRINKING WELL. REMOVED HER TEJEDA, SHE IS VOIDING ON HER OWN. SHE IS RECIEVING IV FLUIDS. SOME IMPORVMENT IN HER SODIUM AND POTASSIUM LEVELS. SHE IS RECIEVING PO POTASSIUM. HER BLOOD SUGAR LEVELS HAVE BEEN ELEVATED. SPOKE WITH FACUNDO FROM [facility]. SHE REQUESTED AN A1C BE DRAWN WITH NEXT LABS, SPOKE WITH DR. CUELLAR ABOUT THIS. SHE HAS BEEN COOPERATIVE AND PLESANT TODAY. SHE RECIEVED A BED BATH.
--- NOTE | 2020-01-09 04:01 | NUR ---
SHIFT SUMMARY ASSUMED CARE OF PT AT 1900. PT IS ALERT BUT NOT ORIENTED AT ALL. HEART SOUNDS REGULAR, GOEVANI SOUNDS DIMINISHED. PT ONLY SLEPT ABOUT 1 HOUR TONIGHT. T AHS BEEN IN BED MUMBLING TO HERSELF. PT WILL NOT ANSWER QUESTIONS APPROPIATELY WHEN ASKED. PT STILL DOESNT LIKE TO BE CHANGES. PT TOOK MEDICATION CRUSHED IN APPLESAUCE. PT ATTEMPTED TO GET OUT OF BED ONCE THIS SHIFT. THERE IS TWO DISCOLOED SPOTS ON PT BOTTOM, MELIPEX APPLIED. PT WAS INCONTINENT OF URINE T/O THE NIGHT. STOOLS STILL LOOSE. CALL LIGHT IN REACH, BED IN LOWEST POSITION, WILL CONTINUE TO MONITOR.
[2020-01-09 05:44] LABS: Anion Gap 4 mmol/L (6-16); Blood Urea Nitrogen 12 mg/dL (8-24); Bun/Creatinine Ratio 20.5 (12.0-20.0); CO2, Blood 27 mmol/L (21-32); Calcium, Blood 7.7 mg/dL (8.5-10.1); Chloride, Blood 118 mmol/L (98-108); Creatinine, Blood 0.58 mg/dL (0.40-1.00); Glomerular Filtration Rate >60 (60-); Glucose, Blood 149 mg/dL (70-99); Potassium, Blood 3.2 mmol/L (3.5-5.5); Sodium, Blood 149 mmol/L (136-145)
[2020-01-09] MEDS ORDERED: SENN187 PO (09:14)
[2020-01-09] MEDS ORDERED: ARTIFICIAL TEAR15 M2 BOTHEYES (09:15)
[2020-01-09] MEDS ORDERED: BASAGLAR K100 UNIT/1 SC (09:16)
[2020-01-09] MEDS ORDERED: HUMALOG100 UNIT/1 SC (09:17)
[2020-01-09] MEDS ORDERED: POTCHL20ER PO (09:18)
[2020-01-09] MEDS ORDERED: VISIBIOME PO (09:20)
--- NOTE | 2020-01-09 11:03 | NUR ---
SPOKE WITH [facility] THIS MORNING AND GOT A COVID ORDER FOR THE PATIENT TO RETURN HOME. PATIENT'S IV IS REMOVED, SPOKE ABOUT LABS, BLOOD PRESSURES, AND MEDICATIONS. SPOKE WITH THE NURSE AND SENT OVER HOME MEDICATIONS FOR THE PATIENT WELL SENDING THE MEDICATIONS TO PHARMACY OF CHOICE PER RN REQUEST. SPOKE WITH RN AGAIN AT 1108 TO UPDATE ON COVID TEST, LET RN KNOW ABOUT TRANSPORT TIME AND LEFT MEDICAL FLOOR NUMBER FOR ANY CONCERNS. RN FROM [facility] (FACUNDO) DID ASK IF AN A1C WAS RUN BUT DID NOT HAVE AN ANSWER FOR HER AT THIS TIME.
--- NOTE | 2020-01-09 14:03 | NUR ---
DISCHARGE SUMMARY PATIENT OUT WITH [facility] WHEELCHA[facility] VAN. SHE IS ON THE WAY TO [facility] ALL DISCHARGE PAPERS HAVE BEEN SENT TO [facility] VIA FAX AND HARD COPY SENT WITH [facility]. PATIENT IS PLEASANT. IV REMOVED. NO ACUTE CONCNERNS AT TIME OF DISCHARGE.
== END 2020-01-09 14:01 | disposition home or self-care (01) | DRG 871 ==
LOC: ER 19:08 → MEDS 22:06 → PCU 22:06 → MEDS 01-05 13:00 → ENPENDDIS 01-09 09:08 → MEDS 01-09 14:01
PROVIDERS: Emergency Medicine; Internal Medicine; ADMIT Internal Medicine
DX: A41.9 Sepsis, unspecified organism (principal); G92 Toxic encephalopathy; N17.9 Acute kidney failure, unspecified; N39.0 Urinary tract infection, site not specified; E87.0 Hyperosmolality and hypernatremia; Z66 Do not resuscitate; E11.65 Type 2 diabetes mellitus with hyperglycemia; Z20.828 Contact with and (suspected) exposure to other viral communicable diseases; R65.20 Severe sepsis without septic shock; E86.0 Dehydration; G89.29 Other chronic pain; G30.9 Alzheimer's disease, unspecified; F02.80 Dementia in other diseases classified elsewhere, unspecified severity, without behavioral disturbance, psychotic disturbance, mood disturbance, and anxiety; M81.0 Age-related osteoporosis without current pathological fracture; Z79.82 Long term (current) use of aspirin; E78.5 Hyperlipidemia, unspecified; I10 Essential (primary) hypertension; E87.6 Hypokalemia; D63.8 Anemia in other chronic diseases classified elsewhere; Z79.84 Long term (current) use of oral hypoglycemic drugs
CPT/HCPCS: 36415; 51702; 70450; 71045; 74176; 80048; 80053; 81001; 82010; 82330; 82947; 83605; 83690; 83735; 84439; 84443; 84484; 85025; 87040; 87077; 87086; 87186; 93005; 93010; 96361; 96365-59; 99285-25; A9270; A9270-GY; C9113; J0456; J0696; J1650; J3480; J7030; J7042; J7050; P9612; U0003; U0004

== ENCOUNTER → 2020-10-07 | Outpatient (CLI) | payer MEDICARE, OTHER ==
[~2020-10-07] MED LIST changes: +ALMACONE-2 LIQ355 ML PO; +ARTIFICIAL TEAR15 M2 BOTHEYES; +ASPI325 PO; +Artificial Tear15 ML BOTHEYES; +BACL10 PO; +BASAGLAR K100 UNIT/1 SC; +CEPH500; +DICLOFENAC SOD100 G1 TOP; +DULCOLAX400 MG/5 M PO; +FERSU300 PO; +HUMALOG100 UNIT/1 SC; +IBUP200 PO; +LOPERAMIDE2 M2 PO; +Loratadine10 MG PO; +METF500 PO; +METO25 PO; +MIRALAX17 GM PO; +POTCHL20ER PO; +Prozac20 MG PO; +Q-Tussin100 MG/5 M PO; +SENN187 PO; +VISIBIOME PO
[2020-10-07 19:08] LABS: BASOPHILS ABSOLUTE AUTO 0.03 K/mm3 (0.00-0.23); BASOPHILS PERCENT AUTO 1 % (0-2); EOSINOPHILS PERCENT AUTO 2 % (0-6); Hematocrit 41.8 % (33.0-51.0); Hemoglobin 13.4 g/dL (11.5-16.0); IMMATURE GRAN ABSOLUTE AUTO 0.01 K/mm3 (0.00-0.10); IMMATURE GRAN PERCENT AUTO 0 % (0-1); LYMPHOCYTES ABSOLUTE AUTO 1.85 K/mm3 (0.84-5.20); LYMPHOCYTES PERCENT AUTO 38 % (21-46); MONOCYTES ABSOLUTE AUTO 0.38 K/mm3 (0.16-1.47); MONOCYTES PERCENT AUTO 8 % (4-13); Mean Corpuscular HGB 28.6 pg (26.0-34.0); Mean Corpuscular HGB Conc 32.1 g/dL (31.5-36.5); Mean Corpuscular Volume 89 fL (80-100); Mean Platelet Volume 11.1 fL (9.1-12.4); NEUTROPHILS ABSOLUTE AUTO 2.54 K/mm3 (1.96-9.15); NEUTROPHILS PERCENT AUTO 52 % (41-73); Platelet Count 194 K/mm3 (150-400); RDW Coefficient Variation 13.2 % (11.7-14.2); RDW Standard Deviation 42.9 fL (35.1-46.3); Red Blood Cell Count 4.69 M/mm3 (3.80-5.20); White Blood Cell Count 4.91 K/mm3 (4.00-11.30)
[2020-10-07 19:41] LABS: Alanine Aminotransfer (ALT/SGP 45 U/L (12-78); Albumin, Blood 3.1 g/dL (3.4-5.0); Albumin/Globulin Ratio 0.8 (0.8-1.8); Alk Phos 91 U/L (50-136); Anion Gap 7 mmol/L (6-16); Aspartate Aminotrans (AST/SGOT 25 U/L (12-37); Bilirubin, Total 0.4 mg/dL (0.1-1.0); Blood Urea Nitrogen 21 mg/dL (8-24); Bun/Creatinine Ratio 28.1 (12.0-20.0); CO2, Blood 27 mmol/L (21-32); Calcium, Blood 9.1 mg/dL (8.5-10.1); Chloride, Blood 107 mmol/L (98-108); Creatinine, Blood 0.75 mg/dL (0.40-1.00); Globulin, Blood 3.8 g/dL (2.2-4.0); Glomerular Filtration Rate >60 (60-); Glucose, Blood 213 mg/dL (70-99); Potassium, Blood 4.2 mmol/L (3.5-5.5); Sodium, Blood 141 mmol/L (136-145); Total Protein, Blood 6.9 g/dL (6.4-8.2)
== END | disposition home or self-care (01) ==
LOC: LAB 12:35 → LAB SHORT 12:35
PROVIDERS: Family Medicine
DX: E11.9 Type 2 diabetes mellitus without complications (principal); I10 Essential (primary) hypertension; G30.9 Alzheimer's disease, unspecified
CPT/HCPCS: 80053; 83036; 85025

== ENCOUNTER 2020-11-30 09:23 | Inpatient (IN) | payer MEDICARE, OTHER ==
[~2020-11-30] VITALS: Ht 162.6 cm; Wt 57.0 kg
[2020-11-30 10:08] LABS: Hematocrit 48.4 % (33.0-51.0); Hemoglobin 15.1 g/dL (11.5-16.0); Mean Corpuscular HGB 28.2 pg (26.0-34.0); Mean Corpuscular HGB Conc 31.2 g/dL (31.5-36.5); Mean Corpuscular Volume 90 fL (80-100); Mean Platelet Volume 11.8 fL (9.1-12.4); Platelet Count 160 K/mm3 (150-400); RDW Coefficient Variation 15.3 % (11.7-14.2); RDW Standard Deviation 50.6 fL (35.1-46.3); Red Blood Cell Count 5.36 M/mm3 (3.80-5.20); White Blood Cell Count 10.28 K/mm3 (4.00-11.30)
[2020-11-30 10:12] LABS: Source, Urine Catheter
[2020-11-30] MEDS ORDERED: Prozac20 MG PO ×2 (10:13→15:07)
[2020-11-30 10:18] LABS: Appearance, Urine Hazy (Clear); Bilirubin, Urine Neg (Neg); Blood, Urine 2+ (Neg); Color, Urine Amber (P-Yellow); Glucose Qualitative, Urine 3+ (Neg); Ketones, Urine Neg (Neg); Leukocyte Esterase, Urine Neg (Neg); Nitrite, Urine Pos (Neg); Protein, Urine 2+ (Neg); Urobilinogen, Urine NORM (Normal)
[2020-11-30 10:32] LABS: Alanine Aminotransfer (ALT/SGP 235 U/L (12-78); Albumin, Blood 2.7 g/dL (3.4-5.0); Albumin/Globulin Ratio 0.5 (0.8-1.8); Alk Phos 205 U/L (50-136); Anion Gap 8 mmol/L (6-16); Aspartate Aminotrans (AST/SGOT 94 U/L (12-37); Bilirubin, Total 1.1 mg/dL (0.1-1.0); Blood Urea Nitrogen 88 mg/dL (8-24); Bun/Creatinine Ratio 43.6 (12.0-20.0); CO2, Blood 28 mmol/L (21-32); Calcium, Blood 9.9 mg/dL (8.5-10.1); Chloride, Blood 123 mmol/L (98-108); Creatinine, Blood 2.02 mg/dL (0.40-1.00); Globulin, Blood 5.1 g/dL (2.2-4.0); Glomerular Filtration Rate 23 (60-); Glucose, Blood 349 mg/dL (70-99); Potassium, Blood 3.6 mmol/L (3.5-5.5); Sodium, Blood 159 mmol/L (136-145); Total Protein, Blood 7.8 g/dL (6.4-8.2); Troponin I <0.015 ng/mL (0.000-0.040)
[2020-11-30 11:05] LABS: Amorphous Mod (0-Heavy); Bacteria Few /hpf; Squamous Epithelial Cells Mod /hpf (Few)
[2020-11-30 11:25] LABS: BAND PERCENT MAN 17 % (0-8); BASOPHILS PERCENT MAN 0 % (0-2); EOSINOPHILS PERCENT MAN 0 % (0-6); LYMPHOCYTES ABSOLUTE MAN 0.61 K/mm3 (0.84-5.20); LYMPHOCYTES PERCENT MAN 6 % (21-46); MONOCYTES ABSOLUTE MAN 0.61 K/mm3 (0.16-1.47); MONOCYTES PERCENT MAN 6 % (4-13); NEUTROPHILS ABSOLUTE MAN 9.04 K/mm3 (1.96-9.15); SEG NEUTROPHILS PERCENT MAN 71 % (41-73); TOTAL CELLS COUNTED 100
[2020-11-30] MEDS ORDERED: Aspir 8181 MG PO (15:05)
[2020-11-30] MEDS ORDERED: BACL10 PO (15:06)
[2020-11-30] MEDS ORDERED: ARTIFICIAL TEAR15 M2 BOTHEYES (15:07)
[2020-11-30] MEDS ORDERED: INSULANI SC (15:07)
[2020-11-30] MEDS ORDERED: LORA10ER PO (15:08)
[2020-11-30] MEDS ORDERED: MONT10T PO (15:08)
[2020-11-30] MEDS ORDERED: MIRALAX17 GM PO (15:08)
[2020-11-30] MEDS ORDERED: METO25 PO (15:08)
[2020-11-30] MEDS ORDERED: Hair, Skin & N1 EACH PO (15:09)
[2020-11-30] MEDS ORDERED: VITAMIN D31000 UNI1 PO (15:09)
[2020-11-30] MEDS ORDERED: ASCO500 PO (15:09)
[2020-11-30 17:39] LABS: Bun/Creatinine Ratio 46.5 (12.0-20.0); Calcium, Blood 9.2 mg/dL (8.5-10.1); Creatinine, Blood 2.02 mg/dL (0.40-1.00)
--- NOTE | 2020-11-30 18:29 | NUR ---
SUMMARY PT ADMITTED FROM THE ER, IS MOSTLY NON RESPONSIVE, OPENS EYES WHEN REPOSITIONED, STIFF EXTREMETIES, PT CAME FROM [facility], DNR WITH LIMITED INTERVENTIONS, PT ON IV FLUIDS, NPO, NO SKIN BREAKDOWN, VSS, WILL CONT TO MONITOR
[2020-12-01 05:06] LABS: Hemoglobin 13.9 g/dL (11.5-16.0); Mean Corpuscular HGB 28.4 pg (26.0-34.0); Mean Corpuscular HGB Conc 30.9 g/dL (31.5-36.5); Mean Corpuscular Volume 92 fL (80-100); Mean Platelet Volume 12.3 fL (9.1-12.4); Platelet Count 102 K/mm3 (150-400); RDW Coefficient Variation 15.6 % (11.7-14.2); RDW Standard Deviation 52.7 fL (35.1-46.3); Red Blood Cell Count 4.89 M/mm3 (3.80-5.20)
[2020-12-01 05:36] LABS: Bun/Creatinine Ratio 49.7 (12.0-20.0); Calcium, Blood 8.9 mg/dL (8.5-10.1); Creatinine, Blood 1.75 mg/dL (0.40-1.00); Magnesium, Blood 2.8 mg/dL (1.6-2.4); Potassium, Blood 3.2 mmol/L (3.5-5.5)
--- NOTE | 2020-12-01 06:33 | NUR ---
SHIFT SUMMARY DNR PT ADMITTED FOR [facility]. DOES NOT FOLLOW COMMANDS, WITHDRAWS TO PAIN. WILL OPEN EYES OFTEN. PT APPEARED TO BE IN NO PAIN THROUGHTOUT SHIFT. NO DISTRESS NOTED. PT LAYING IN BED WITH EYES CLOSED. BED IN LOWEST POSITION, ALARM ON. ON 2L NC SATS STABLE.
[2020-12-01 11:34] LABS: Bun/Creatinine Ratio 55.5 (12.0-20.0); Calcium, Blood 8.4 mg/dL (8.5-10.1); Creatinine, Blood 1.37 mg/dL (0.40-1.00); Potassium, Blood 4.5 mmol/L (3.5-5.5)
--- NOTE | 2020-12-01 16:03 | NUR ---
SHIFT SUMMARY PATIENT SHOWED NO SIGNS OF DISCOMFORT. PATIENT NONVERBAL. PATIENT UNABLE TO FOLLOW INSTRUCTIONS. PATIENT OPENS HER EYES, BUT DOES NOT TRACK OBJECTS. SPEECH WORKED WITH PATIENT. ST RECOMMENDED PATIENT HAS NO ORAL INTAKE, INCLUDING MEDICATIONS. PATIENT WAS HYPERTENSIVE THIS MORNING, DR. TALAMANTES CALLED AND NEW ORDERS PLACED FOR HYDRALAZINE 10-20MG IV Q6 PRN. PALLIATIVE CARE CONSULTED. NEW ORDERS FOR CLINIMIX 100MLS/HR.
--- NOTE | 2020-12-01 16:52 | NUR ---
Initial Palliative Consult: Met with pt who was brought to ED via EMS from [facility] after becoming non-responsive. She was admitted and placed on the medical floor. She is an 89 year old female with hx of Alzheimer's dementia, frequent UTI's, dehydration, Acute kidney injury. She has remained non-verbal and has not roused since admission. I spoke with both pt's relative and ESTER Perry, who requests comfort care now, with return to [facility] tomorrow. Spoke with Dr. Coto who is agreeable to this plan. The nurse, Montse at [facility] request we return her on comfort care, and she has already arranged hospice with [facility] for early next week. She states Dr. Lukasz Harvey will follow her until then. Received order from Dr. Coto for comfort care now. Left [facility] for FELICIA Mejia that pt to d/c home to [facility] tomorrow.
[2020-12-02 04:55] LABS: Hematocrit 38.2 % (33.0-51.0); Hemoglobin 11.9 g/dL (11.5-16.0); Mean Corpuscular HGB 28.7 pg (26.0-34.0); Mean Corpuscular HGB Conc 31.2 g/dL (31.5-36.5); Mean Corpuscular Volume 92 fL (80-100); Platelet Count 73 K/mm3 (150-400); RDW Coefficient Variation 15.6 % (11.7-14.2); RDW Standard Deviation 52.9 fL (35.1-46.3); Red Blood Cell Count 4.15 M/mm3 (3.80-5.20); White Blood Cell Count 8.84 K/mm3 (4.00-11.30)
[2020-12-02 04:59] LABS: Mean Platelet Volume 13.2 fL (9.1-12.4)
[2020-12-02 05:13] LABS: Creatinine, Blood 1.08 mg/dL (0.40-1.00); Potassium, Blood 2.9 mmol/L (3.5-5.5)
[2020-12-02 05:36] LABS: BAND PERCENT MAN 11 % (0-8); BASOPHILS PERCENT MAN 0 % (0-2); EOSINOPHILS PERCENT MAN 0 % (0-6); LYMPHOCYTES ABSOLUTE MAN 0.88 K/mm3 (0.84-5.20); LYMPHOCYTES PERCENT MAN 10 % (21-46); MONOCYTES ABSOLUTE MAN 0.26 K/mm3 (0.16-1.47); MONOCYTES PERCENT MAN 3 % (4-13); NEUTROPHILS ABSOLUTE MAN 7.69 K/mm3 (1.96-9.15); SEG NEUTROPHILS PERCENT MAN 76 % (41-73); TOTAL CELLS COUNTED 100
--- NOTE | 2020-12-02 12:51 | NUR ---
Apparently there was a change in plans, and pt will be d/c'd tomorrow instead of today. When I initially spoke to pt's ESTER, she requested pt return as soon as possible back to [facility] with hospice. I then spoke to PHYLLIS Willard at [facility] and relayed the POA's wishes. Montse stated that's no problem, and stated we could send pt back to [facility] in the morning, and she would have "Dr. Harvey follow her and write medications until [facility] can admit the patient early next week.
--- NOTE | 2020-12-02 17:02 | NUR ---
SHIFT SUMMARY PT MADE COMFORT CARE TODAY. PT RESPONDS TO TOUCH BUT DOES NOT SPEAK. SHE ALSO TRACKS WITH HER EYES AND IS EASILY AROUSED. IV'S DC'D AND PT TAKEN OFF CLINIMIX. WITH DC BACK TO [facility] TOMOR[facility] AND DISCHARGE PACKET IS COMPLETE. WILL REPORT TO MELY RN.
--- NOTE | 2020-12-03 04:31 | NUR ---
END OF SHIFT SUMMARY: PT OPENS EYES ON SPEECH. UNABLE TO TALK BACK NOR FOLLOW COMMANDS. DOES NOT HAVE ANY SYMPTOMS OF PAIN AND SHAKES HER HEAD WHEN ASKED IF SHE IS IN PAIN. NODS WHEN ASKED IF SHE IS COMFORTABLE. TURNING OFTEN. PT CLENCHES ON ATTEMPT AT ORAL CARE. APPEARS COMFORTABLE AT THIS TIME. SHALLOW EVEN BREATHS.
[2020-12-03] MEDS ORDERED: MORP20L SL (09:21)
[2020-12-03] MEDS ORDERED: Ativan1 MG PO (09:21)
[2020-12-03] MEDS ORDERED: TRANSDERM-SCOP1 EAC7 TOP (09:22)
--- NOTE | 2020-12-03 12:55 | NUR ---
D/C HOME TO [facility] D/C ORDERS RECIEVED AND REVIEWED. PT TO D/C HOME TO [facility] WITH HOSPICE. REPORT CALLED TO FACILITY AND PT TRANSPORTED VIA [facility] WITH [facility].
== END 2020-12-03 12:58 | disposition hospice, home (50) | DRG 682 ==
LOC: ER 09:23 → MEDS 16:13 → ENPENDDIS 12-03 08:47 → MEDS 12-03 12:58
PROVIDERS: Emergency Medicine; Nurse Practitioner Acute Care; Student in an Organized Health Care Education/Training Program; ADMIT Internal Medicine
PROC: 8E0ZXY6 Isolation (ICD-10-PCS; principal; 2020-11-30)
DX: N17.9 Acute kidney failure, unspecified (principal); G92 Toxic encephalopathy; E87.0 Hyperosmolality and hypernatremia; E86.0 Dehydration; E11.9 Type 2 diabetes mellitus without complications; R74.01 Elevation of levels of liver transaminase levels; G47.00 Insomnia, unspecified; Z51.5 Encounter for palliative care; Z66 Do not resuscitate; I10 Essential (primary) hypertension; E78.5 Hyperlipidemia, unspecified; Z86.16 Personal history of COVID-19; G30.9 Alzheimer's disease, unspecified; F02.80 Dementia in other diseases classified elsewhere, unspecified severity, without behavioral disturbance, psychotic disturbance, mood disturbance, and anxiety; M81.0 Age-related osteoporosis without current pathological fracture; Z90.49 Acquired absence of other specified parts of digestive tract; Z98.890 Other specified postprocedural states; Z79.82 Long term (current) use of aspirin; Z79.899 Other long term (current) drug therapy; Z79.4 Long term (current) use of insulin; Z88.7 Allergy status to serum and vaccine; Z86.718 Personal history of other venous thrombosis and embolism; E87.6 Hypokalemia; G89.4 Chronic pain syndrome
CPT/HCPCS: 36415; 51701; 70450; 71045; 80048; 80053; 81001; 82947; 83735; 84484; 85025; 85027; 87077; 87086; 87186; 92610; 93005; 93010; 94762; 96365-59; 96366-59; 96375-59; 99285-25; A9270; J0360; J0696; J1644; J1815; J3480; J7030; J7040